=== PATIENT | male | born 2000 ===

== ENCOUNTER 2025-01-01 21:56 | Emergency (ER) | payer BC ==
[~2025-01-01] VITALS: Ht 195.6 cm; Wt 86.2 kg
[2025-01-01 22:03] VITALS: BP 110/71
[2025-01-01 22:30] VITALS: BP 110/71; O2SAT 96
== END 2025-01-01 22:31 | disposition home or self-care (01) ==
LOC: ER 21:56
DX: S61.411A Laceration without foreign body of right hand, initial encounter (principal); W23.0XXA Caught, crushed, jammed, or pinched between moving objects, initial encounter; Y93.89 Activity, other specified; Y92.89 Other specified places as the place of occurrence of the external cause; Y99.8 Other external cause status
CPT/HCPCS: A4606; A4663